=== PATIENT | female | born 1965 | race Caucasian/White ===

== ENCOUNTER 2017-05-13 21:10 | Observation (INO) ==
[2017-05-13] MEDS ORDERED: SODIUM CHLORIDE 0.9% 1,000 ML IV STA (23:12)
[2017-05-13] MEDS ORDERED: ONDANSETRON 4 MG/2 ML VIAL IV STA (23:12)
[2017-05-13] MEDS ORDERED: ALUM/MAG/SIMETH/LIDO VISC 1:1 30 ML BOTTLE PO STA (23:12)
[2017-05-13] MEDS ORDERED: PANTOPRAZOLE 40 MG VIAL IV STA (23:12)
[2017-05-13 23:23] LABS: Basophils # 0.1 10*3/uL (0.0-0.2); Basophils % 0.7 % (0.0-0.8); Eosinophils # 0.1 10*3/uL (0.0-0.87); Eosinophils % 1.5 % (0.00-10.9); Hematocrit 32.4 VOL% (35.7-47.0); Hemoglobin 10.8 GM/DL (12.0-16.0); Immature Granulocytes % 0.3 %; Immature Granulocytes Absolute 0.02 #; Lymphocytes # 3.6 10*3/uL (1.4-4.0); Lymphocytes % 48.9 % (21.3-54.2); Mean Corpuscular HGB Conc 33.3 GM/DL (32-36); Mean Corpuscular Hemoglobin 29 PG (27-34); Mean Corpuscular Volume 86.4 FL (87-102); Mean Platelet Volume 10.5 FL (9.6-12.0); Monocytes # 0.6 10*3/uL (0.11-0.8); Monocytes % 8.2 % (1.7-12.7); Neutrophils % 40.4 % (38.7-73.9); Platelet Count 286 T/CUMM (130-400); Red Blood Count 3.75 MC/CUMM (3.8-5.5); Red Cell Distribution Width 15.3 % (9.3-17.3); White Blood Count 7.4 T/CUMM (4-12)
--- NOTE | 2017-05-13 23:31 | Emergency Department Note ---
Robert Gabriel Gwan, am scribing for, and in the presence of, Antwan Joseph MD 23 :31. Jake Gabriel Charles R, MD, personally performed the services described in this documentation, ascribed by Ramya Jones in my presence, and it is both accurate and complete 331 . Arrival - Arrival Chief Complaint: Nausea/Vomiting/Diarrhea Stated Complaint: stomach pain,throwing up blood ED Nursing Triage Note: C/O Nausea/vomiting/diarrhea. Onset on and off for about a month. Pt states she has also had some bleeding from vagina and she is post hysterectomy. Denies seeking medical attention until tonight due to "I am trying to get on my disability" Denies fever. Mode of Arrival: Ambulatory Limitations: No Limitations Source: Patient, Old Records Reviewed, RN Notes Reviewed Time Seen by Provider: 05/13/17 22:34 - History of Present Illness HPI Narrative: Patient is a 52 y/o female who presents to the ED with a c/o N/V/D with an intermittent onset of 1 month ago. Patient also complains of vaginal bleeding s/ p hysterectomy. Patient denies having a fever. Patient describes her discomfort as cramping/burning sensation and that he pain is worsened after eating. Her pain is located in the center of her abd and radiates up to her throat. Patient confirmed that she has dark red hematuria and that she has a SHx of smoking cigarettes daily. She denies having a PCP or any ETOH use. Patient displayed signs of discomfort with direct palpation to abd area during exam. No other problems/complaints reported in ED. Onset (ago): month(s) Consistency: intermittent Severity: moderate Date of Last Menstrual Period: Hysterectomy 1996 Allergies/Adverse Reactions: Allergies Allergy/AdvReac Type Severity Reaction Status Date / Time ciprofloxacin [From Cipro] Allergy Severe RASH Verified 12/07/14 11:10 guaifenesin [From Robitussin] Allergy Severe ITCHING Verified 12/07/14 11:12 Penicillins Allergy Severe RASH Verified 12/07/14 11:13 Home Medications: Home Medications Medication Instructions Recorded Confirmed Type No Known Home Medications [No 05/13/17 05/13/17 History Known Home Medications] Review of System - Review of System 12 point system: reviewed and no additional remarkable complaints except as stated - Review of System Constitutional: Present: as per HPI. Absent: fever Gastrointestinal: Present: as per HPI, nausea, vomiting, diarrhea Genitourinary female: Present: as per HPI, hematuria Medical,Surgical,& Family Hx - Medical History Neurology: History of: Cerebrovascular Accident Rheumatology: History of;: Rheumatoid Arthritis - Social History Smoking Status: Current every day smoker Frequency of Alcohol Use: None Type of Drug Use: None Exam Vital Signs: Vital Signs Temperature 98.4 F 05/13/17 22:02 Pulse Rate 55 L 05/14/17 01:38 Respiratory Rate 22 05/14/17 01:38 Blood Pressure 81/53 05/14/17 01:38 O2 Sat by Pulse Oximetry 100 05/14/17 01:38 - General General appearance: alert, in no apparent distress, other (Patient has "smoker face"; appearance of dehydration ) - Head Head exam: Present: atraumatic, normocephalic - Eye Eye exam: Present: PERRL, EOMI, other (sunken orbits ) - ENT ENT exam: Present: normal oropharynx, mucous membranes dry - Neck Neck exam: Present: full ROM, trachea midline. Absent: tenderness - Chest Chest inspection: Present: symmetric chest wall rise. Absent: tenderness - Respiratory Respiratory exam: Present: rales (bilaterally), rhonchi, wheezes (faint expiratory wheezes ) - Cardiovascular Cardiovascular exam: Present: regular rate, normal rhythm, normal heart sounds. Absent: murmur - Abdominal Exam Abdominal exam: Present: tenderness (RUQ epigastric tenderness) - Rectal Exam Rectal exam: Present: heme (-) stool - Extremities Exam Extremities exam: Present: full ROM. Absent: tenderness - Back Exam Back exam: Present: full ROM. Absent: tenderness - Neurological Exam Neurological exam: Present: alert, oriented X3, CN II-XII intact. Absent: motor sensory deficit - Psychiatric Psychiatric exam: Present: normal affect, normal mood - Skin Skin exam: Present: other (Patient has "smoker face"; appearance of dehydration ; sunken orbits ) Course - Consultations Consultation #1: Hospitalist will admit patient Time: 01:39 Results - Labs CBC & BMP: 05/13/17 23:00 05/13/17 23:00 Lab Results: I have reviewed the patients labs Labs: Laboratory Tests 05/13/17 05/13/17 05/13/17 23:00 23:00 23:00 WBC 7.4 RBC 3.75 L Hgb 10.8 L Hct 32.4 L MCV 86.4 L Plt Count 286 Lactic Acid 1.2 Urine pH 6.0 Ur Specific [place] 1.006 Urine Urobilinogen < 2.0 H Urine Leukocytes Large H Urine RBC 2 Urine WBC 10 Ur Squamous Epith Cells Occasional Ur Renal Epithelial Cell Occasional Urine Bacteria Moderate Urine Mucus Occasional Laboratory Tests 05/13/17 23:00 Sodium 139 Potassium 3.5 Chloride 105 Carbon Dioxide 30 BUN 7 Creatinine 0.60 Alkaline Phosphatase 132 H Albumin 2.9 L Globulin 4.8 H Albumin/Globulin Ratio 0.6 L Serum Alcohol < 15 L Laboratory Tests 05/13/17 23:00 Urine Opiates Screen Negative Ur Barbiturates Screen Negative Ur Phencyclidine Scrn Negative U Amphetamine/Methamph Negative U Benzodiazepines Scrn Negative U Cocaine Metab Screen Negative U Cannabinoids Screen Negative Disposition Clinical Impression: Gastroenteritis, Biliary colic symptom, UTI (urinary tract infection), Chronic abdominal pain, Hypotension Case discussed with: patient Disposition: Still a Patient Condition: Stable Time of Disposition: 01:39
[2017-05-13] MEDS ORDERED: ONDANSETRON 4 MG/2 ML VIAL ONE (23:39)
[2017-05-13] MEDS ORDERED: PANTOPRAZOLE 40 MG VIAL IV ONE (23:39)
[2017-05-13] MEDS ORDERED: ALUM/MAG/SIMETH/LIDO VISC 1:1 30 ML BOTTLE PO ONE (23:39)
[2017-05-13 23:44] LABS: Lactic Acid 1.2 MMOL/L (0.4-2.0)
[2017-05-13 23:47] LABS: Apearance,Urine CLEAR (Clear); Bacteria,Urine Moderate /HPF (Few); Bilirubin,Urine Negative (Negative); Blood, Urine Negative (Negative); Glucose,Urine (UA) Negative (Negative); Ketones,Urine Negative (Negative); Mucus,Urine Occasional /LPF (Occasional); Nitrite,Urine Negative (Negative); Protein,Urine Negative; RBC,Urine 2 /HPF (0-4); Renal Epithelial Cells,Urine Occasional /HPF (<1); Squamous Epithelial Cell,Urine Occasional /HPF (0-10); Urine Color Yellow (Yellow); Urine Specific Gravity 1.006 (1.001-1.035); Urine Urobilinogen < 2.0 EU/DL (0.2-1.0); WBC,Urine 10 /HPF (0-6)
[2017-05-13 23:59] LABS: Alanine Aminotransferase 13 U/L (13-56); Albumin 2.9 G/DL (3.4-5.0); Alkaline Phosphatase 132 U/L (45-117); Amylase 35 U/L (25-115); Aspartate Amino Transferase 16 U/L (0-37); Bilirubin,Total < 0.39 MG/DL (0.2-1.0); Blood Urea Nitrogen 7 MG/DL (7-18); Calcium 9.4 MG/DL (8.5-10.1); Glucose 104 MG/DL (74-106); Magnesium 2.1 MG/DL (1.8-2.4); Osmolality,Calculated 274.5 MOS/KG (273-304); Potassium 3.5 MMOL/L (3.5-5.1); Sodium 139 MMOL/L (136-145); Total Protein 7.7 G/DL (6.4-8.3); Troponin I Only < 0.015 NG/ML (0.00-0.045)
[2017-05-14 00:09] LABS: Barbiturates Screen,Urine Negative (Negative); Benzodiazepines Screen,Urine Negative (Negative); Cannabinoid Screen,Urine Negative (Negative); Opiate Screen,Urine Negative (Negative); Phencyclidine Screen,Urine Negative (Negative)
[2017-05-14] MEDS ORDERED: cefTRIAXone 1,000 MG in SODIUM CHLORIDE 0.9% 100 ML IV STA (01:40)
[2017-05-14] MEDS ORDERED: SODIUM CHLORIDE 0.9% 100 ML IV ONE (01:43)
[2017-05-14] MEDS ORDERED: cefTRIAXone 1,000 MG VIAL ONE (01:43)
[2017-05-14] MEDS ORDERED: ACETAMINOPHEN 325 MG TABLET PO PRN (02:45)
[2017-05-14] MEDS ORDERED: ONDANSETRON 4 MG/2 ML VIAL IV PRN ×2 (02:45→21:12)
[2017-05-14] MEDS ORDERED: ALUMINUM/MAGNES/SIMETH MAX STR 30 ML UDCUP PO PRN (02:55)
--- NOTE | 2017-05-14 03:13 | Hospitalist History & Physical ---
<Tila Bates - Last Filed: 05/14/17 02:56> Assessment and Plan - Time spent with patient Time spent with patient: Greater than 30 minutes (1) Epigastric abdominal pain Status: Acute Assessment and plan: Admit to hospitalist services. Consult GI. Concern for PUD. Abdominal XR, Gallbladder US performed in ED. Reports pending. Treated with Protonix, GI cocktail, and zofran in ED. Continue daily Protonix. Mylanta and Zofran PRN. Clear liquid diet for now. Current Visit: Yes (2) Hypotension Status: Acute Assessment and plan: BP has been intermittently normal and low in the ED with lowest being 75/43 ( supine) and highest being 104/59 (supine). NS bolus of 1000 ml given in ED. Continue hydration with NS at 125 ml/hr. Continue to monitor. Current Visit: Yes (3) UTI (urinary tract infection) Status: Acute Assessment and plan: No elevation of WBC. Afebrile. Rocephin 1 gram IV given in ED. Continue Rocephin 1 gram IV Q24 hours. Hydrate with NS at 125 ml/hr. Recheck CBC in am. Current Visit: Yes (4) DVT prophylaxis Status: Acute Assessment and plan: Lovenox 40 mg SQ daily Current Visit: Yes History of Present Illness Chief complaint: Abdominal pain, vomiting History of present illness: Ms. Dhaliwal is a 52 year old female with a past medical history of RA and CVA x2 who presented to the emergency department of [facility] with complaints of epigastric pain with vomiting x 1 day. Ms. Dhaliwal reports that she has had some measure of epigastric pain "for a while," but that it has gotten worse over the last day and she has had 3-4 episodes of associated vomiting today. She reports decreased intake secondary to the pain it causes and a subjective complaint of weight loss. She denies fever and diarrhea. She additionally reports mild suprapubic pain with urination. In the ED, her work up was mostly unremarkable except for evidence of a UTI. Additionally, she developed a measure of hypotension while in the ED. She denies any knowledge of chronic hypotension. She takes no home medications. She was treated with IV Rocephin, GI cocktail, zofran, and protonix. Currently, she still complains of epigastric pain, but is in no acute distress. Hospitalist services were consulted, and the patient will be admitted to observation for further evaluation and treatment. Home Medications Medication Instructions Recorded Confirmed Type No Known Home Medications [No 05/13/17 05/13/17 History Known Home Medications] Allergies Allergy/AdvReac Type Severity Reaction Status Date / Time ciprofloxacin [From Cipro] Allergy Severe RASH Verified 12/07/14 11:10 guaifenesin [From Robitussin] Allergy Severe ITCHING Verified 12/07/14 11:12 Penicillins Allergy Severe RASH Verified 12/07/14 11:13 Medical,Surgical,& Family Hx - Medical History Neurology: History of: Cerebrovascular Accident (x 2.) Rheumatology: History of;: Rheumatoid Arthritis - Surgical History Abdominal Surgeries: Surgical HX of: Appendectomy Reproductive Surgeries: Surgical HX of;: Section, Hysterectomy - Family History Family History: Reports;: Family Hypertension - Social History Smoking Status: Current every day smoker (at least 1 1/2 ppd.) Have you smoked in the last 12 months: Yes Time spent discussing smoking cessation with patient: 3 to 10 minutes (3 mintues were spent discussing smoking cessation with the patient.) Frequency of Alcohol Use: None Type of Drug Use: None Marital Status: Legally Lives With:: Sibling Functional capacity: uses cane/walker 12 point system: reviewed and no additional remarkable complaints except as stated - Constitutional Constitutional: Present: anorexia. Absent: fever(s), lethargy, malaise, weakness - EENT Eyes: Absent: blurry vision, diplopia, loss of vision Ears: Absent: decreased hearing, ear discharge, ear pain Nose, mouth and throat: Absent: epistaxis, headache(s), nasal congestion, sore throat - Cardiovascular Cardiovascular: Absent: chest pain at rest, chest pain with activity, diaphoresis, dyspnea, edema, lightheadedness, orthopnea, palpitations - Respiratory Respiratory: Absent: cough, dyspnea, wheezing - Gastrointestinal Gastrointestinal: Present: abdominal pain, nausea, vomiting. Absent: constipation, diarrhea - Genitourinary Genitourinary: Present: dysuria (suprapubic pain with urination. ) - Musculoskeletal Musculoskeletal: Present: arthralgias, back pain, joint swelling. Absent: muscle weakness, myalgias - Neurological Neurological: Absent: confusion, dizziness, numbness, paresthesias, syncope - Psychiatric Psychiatric: Absent: anxiety, depression - Endocrine Endocrine: Absent: cold intolerance, polydipsia, polyphagia, polyuria - Hematologic/Lymphatic Hematologic/Lymphatic: Absent: easy bleeding, easy bruising Exam - Constitutional Vitals: Period Temp Pulse Resp BP Sys/Richardson Pulse Ox Last 24 Hr 98.4 F-98.4 F 50-69 16-28 75-104/43-73 99-100 Exam: Constitutional System: Afebrile. Awake, alert and oriented. No distress. No tremulousness. Head: Normocephalic, atraumatic. Ears, Nose and Throat System: No pain or tenderness. No epistaxis or discharge Eyes System: Pupils equal, round, and reactive. Extraocular muscles intact. Neck: Supple, without adenopathy, No jugular venous distention. No thyromegaly, neck mass, or prior surgery apparent. Respiratory System: Chest clear to auscultation. Cardiovascular System: Heart with regular rate and rhythm. No murmur. GI System: Abdomen soft, Epigastric tenderness noted. Hyperactive active bowel sounds present. Musculoskeletal System: Limbs with no pedal edema. Full distal pulses. Normal capillary refill. Neurological System: No discernable sensory deficit. No aphasia Psychiatric System: Conversation is rational Results - Labs CBC & BMP: 05/13/17 23:00 05/13/17 23:00 Lab Results: I have reviewed the past 24 hour labs - Diagnostic Findings Procedure: Abdominal x-ray: pending, Chest x-ray: pending, Ultrasound: pending <Sajan Patel - Last Filed: 05/14/17 04:09> Assessment and Plan (1) Epigastric abdominal pain Status: Acute Assessment and plan: I saw the patient in conjunction with nurse practitioner Tila Whyte. I agree with the above. She presented with abdominal pain and hypotension. Apparently hypotension is frequent with her but she complained of recent vomiting and I agree with moderate rehydration. GI has been consulted for her epigastric pain. Exam at this point is fairly unremarkable otherwise. Note she has elevated alk phos and low albumin with elevated globulin. This raises suspicion for possible chronic hepatitis for which we will check for as well as HIV. Current Visit: Yes History of Present Illness History of present illness: Ms. Dhaliwal is a 52 year old female Exam - Constitutional Vitals: Period Temp Pulse Resp BP Sys/Richardson Pulse Ox Last 24 Hr 98.4 F-98.4 F 50-69 16-28 75-104/43-73 99-100 Results - Labs CBC & BMP: 05/13/17 23:00 05/13/17 23:00
[2017-05-14] MEDS: SODIUM CHLORIDE 0.9% 1,000 ML IV SCH ×3 (03:59→22:12)
[2017-05-14 05:32] LABS: Basophils % 0.6 % (0.0-0.8); Eosinophils # 0.1 10*3/uL (0.0-0.87); Eosinophils % 1.5 % (0.00-10.9); Hematocrit 29.3 VOL% (35.7-47.0); Hemoglobin 9.6 GM/DL (12.0-16.0); Immature Granulocytes % 0.1 %; Immature Granulocytes Absolute 0.01 #; Lymphocytes # 3.7 10*3/uL (1.4-4.0); Lymphocytes % 53.1 % (21.3-54.2); Mean Corpuscular HGB Conc 32.8 GM/DL (32-36); Mean Corpuscular Hemoglobin 29 PG (27-34); Mean Corpuscular Volume 87.2 FL (87-102); Monocytes # 0.6 10*3/uL (0.11-0.8); Monocytes % 9.2 % (1.7-12.7); Neutrophils # 2.4 10*3/uL (1.4-7.4); Neutrophils % 35.5 % (38.7-73.9); Platelet Count 250 T/CUMM (130-400); Red Blood Count 3.36 MC/CUMM (3.8-5.5); Red Cell Distribution Width 15.5 % (9.3-17.3); White Blood Count 6.9 T/CUMM (4-12)
[2017-05-14 06:00] LABS: Calcium 8.9 MG/DL (8.5-10.1)
[2017-05-14 06:13] LABS: Eosinophils 2 % (0-10); Hypochromasia 2+; Lymphocytes 48 % (20-55); Platelet Estimate Normal; Segmented Neutrophils 43 % (50-85); Total Cells Counted 100
--- NOTE | 2017-05-14 06:14 | Ultrasound Report ---
Exam: US gallbladder Date:05/13/2017 11:12 PM Indication: Right upper quadrant pain and tenderness Comparison: None Findings: The study was initially reviewed by [facility]. Liver: 14.8 cm. Hepatic and portal veins are patent. No focal mass Gallbladder: Gallbladder is contracted with wall measuring 4.2 mm. No obvious stones present. CBD: 3.3 mm Pancreas: Normal size shape and configuration Kidneys Right kidney: 9.5 x 3.6 x 4 cm. No hydronephrosis perinephric fluid collections or focal mass. Normal color flow Ascites: None Impression: 1. Contracted gallbladder no obvious abnormalities otherwise noted. If further evaluation is warranted hepatobiliary imaging may be beneficial with nuclear medicine Ultrasound images were stored and captured PROCEDURE INTERPRETED AT [facility] DEPARTMENT OF RADIOLOGY Final Report Signed by: Dr. Donovan Molina
--- NOTE | 2017-05-14 07:01 | XRay Report ---
Exam: XR abdomen 2V Date: 05/13/2017 11:12 PM Comparison: None Indication: Abdominal pain Findings: Lung bases are unremarkable. The liver is unremarkable Renal contours/spleen are obscured The bony structures are demonstrated with mild scoliotic curve with scoliotic curve present which is most likely positional No obvious pneumoperitoneum Nonspecific GI pattern. Moderate stool in the rectal ampulla Phleboliths present. Impression: 1. Nonspecific GI pattern with mild constipation stool in the rectal ampulla PROCEDURE INTERPRETED AT [facility] DEPARTMENT OF RADIOLOGY Final Report Signed by: Dr. Donovan Molina
--- NOTE | 2017-05-14 07:02 | XRay Report ---
Exam: XR chest 1V portable Date: 05/13/2017 11:12 PM Indication: Abdominal pain Comparison: 07/05/2016 Technical: AP Findings: Minimal scarring in the perihilar region. External cardiac leads are present. The heart is normal in size. A few small calcified nodes present in the right hilar region. No obvious infiltrate or effusion or pneumothorax. Impression: 1. No acute cardiopulmonary pathology with mild scarring in the perihilar regions PROCEDURE INTERPRETED AT [facility] DEPARTMENT OF RADIOLOGY Final Report Signed by: Dr. Donovan Molina
--- NOTE | 2017-05-14 07:11 | Gastrointestinal Consult Note ---
Assessment and Plan (1) Epigastric abdominal pain Status: Acute Assessment and plan: This patient has fairly severe epigastric tenderness--I do not believe that this is biliary colic, this may simply be a gastroenteritis that will improve over time. It is curious that she is having hypotension but this may be related to the multiple episodes of vomiting, or mild infection. Her blood pressure may be similar to "where she lives", we simply do not have enough history on this lady to tell. She feels somewhat better on the Protonix. I would suggest watching her with a CBC every day to monitor her white count and see if her hematocrit continues to drop. She has not been colonoscopy and she follows up with Dr. Cuenca she can likely follow up with him if she needs upper endoscopy or we can scope her this admission if her hematocrit drops significantly or if she vomits blood or has melena. These have not occurred yet , and until they do will go ahead and treat her like this is a gastroenteritis versus food poisoning episode. I do not feel like she has enough pain in her right upper quadrant toward HIDA scan with CCK infusion but that could be considered if her pain becomes more colicky. Her LFTs are completely normal as are amylase and lipase. I am not sure why we are checking HIV and hepatitis screening in this patient as her liver function tests are normal. Current Visit: Yes (2) Hypotension Status: Acute Assessment and plan: Continue aggressive fluid hydration and would consider starting the patient on clear liquids to see how she tolerates this food intake. Current Visit: Yes History of Present Illness Chief complaint: 10 out of 10 epigastric pain, nausea/vomiting 4 times History of present illness: Ms. Dhaliwal is a 52 year old female who has fairly severe rheumatoid arthritis and possible urinary tract infection, but without significant elevation white blood cell count she is mildly anemic with hematocrit of 32.4, now down to 29.3 % with hydration. This patient follows up with Dr. Cuenca for her yearly colonoscopy for prior history of colon polyps. Although she has pain that was 10 out of 10 yesterday this is improved today and is now down to about a 7 out of 10 most uncomfortable with deep palpation she feels a lot less nauseous. She had 4 episodes of vomiting yesterday along with this pain. Ultrasound was done in the emergency room which was notable for a contracted gallbladder. She does not have a great deal of pain under the right upper quadrant, patient did have a low blood pressure in the emergency room at 75/43. This is, mildly since her hospitalization hydration with blood pressure of 80/55 but pulse rates that are run in the 50s-60s. Is unclear whether this is her baseline. She does not feel dizzy at this time but is lying supine in bed. This patient' s had a history of CVA 2 as well as severe RA involving her hands. She does not recall seeing black emesis but states that she does not really look at her vomit (?). She does not state that she is chronically hypotensive. She has some mild suprapubic pain and pain on urination as well. Urinalysis shows a large amount of leukocytes but only 10 white blood cells per high-power field, culture is being done now, urine toxicology is negative across the board. The patient states that she does not take much medication aside from the 2 ibuprofen per day for her underlying rheumatoid arthritis. She has been taking these medications for years. I am not sure why her colonoscopy is being done yearly by Dr. Cuenca,. Her regular compliance vice president. She denies any recent travel, she has not eaten any raw oysters, spoiled food, or other suspect foods that she can remember. She has not had any diarrhea or constipation issues. She has not had any recent sick contacts Home Medications Medication Instructions Recorded Confirmed Type No Known Home Medications [No 05/13/17 05/13/17 History Known Home Medications] Allergies Allergy/AdvReac Type Severity Reaction Status Date / Time ciprofloxacin [From Cipro] Allergy Severe RASH Verified 12/07/14 11:10 guaifenesin [From Robitussin] Allergy Severe ITCHING Verified 12/07/14 11:12 Penicillins Allergy Severe RASH Verified 12/07/14 11:13 Medical,Surgical,& Family Hx - Medical History Neurology: History of: Cerebrovascular Accident (x 2.) HEENT: History of: Dental Problems (Poor dentation) Rheumatology: History of;: Rheumatoid Arthritis Gastrointestinal: History of: GERD, Polyps - Surgical History Abdominal Surgeries: Surgical HX of: Appendectomy Reproductive Surgeries: Surgical HX of;: Section, Gynecologic Surgery, Hysterectomy - Family History Family History: Reports;: Family Hypertension - Social History Smoking Status: Current every day smoker Frequency of Alcohol Use: None Type of Drug Use: None Review of systems: Constitutional: Denies fever, chills, but positive for nausea, and vomiting Eyes: Denies dry eyes, and scleral icterus HENT: Occasionally she has some headaches Cardiovascular: Denies acute chest pain and claudication Respiratory: Denies shortness of breath, wheezing, and difficulty breathing, denies cough Gastrointestinal: As noted in the HPI Genitourinary: Denies dysuria and hematuria Neurologic: Denies vision loss, and loss of sensation Musculoskeletal: The patient has severe joint swelling, joint stiffness, and muscular weakness due to her rheumatoid arthritis Psychiatric: Denies depression and leslie symptoms Heme-Lymph: Admits easy bruising, but denies lymph node enlargement or tenderness, night sweats, excessive bleeding Allergies-immunologic: Denies pruritus and rhinorrhea Exam - Constitutional Vitals: Period Temp Pulse Resp BP Sys/Richardson Pulse Ox Last 24 Hr 98.0 F-98.4 F 50-69 14-28 75-105/43-73 99-100 General appearance: mild distress - Eye Eye exam: Present: EOMI Pupils: Present: CHRISTIAN - Respiratory Respiratory exam: Present: clear to auscultation bilaterally - Cardiovascular Cardiovascular exam: Present: regular rate and rhythm - GI/Abdominal GI/Abdominal exam: Present: normal bowel sounds, tenderness (Moderately severe epigastric pain on deep palpation), soft, other (Rectal examination shows guaiac negative stool now both in the emergency room and a more my physical examination, small internal hemorrhoids are seen.). Absent: distended, guarding , rebound - Extremities Exam Extremities exam: Present: other (Rheumatoid changes with ulnar deviation of her fingers bilaterally and swelling of the MCP joints in bilateral hands) - Neurological Exam Neurological exam: Present: alert, oriented X3, CN II-XII intact - Psychiatric Psychiatric exam: Present: normal affect, normal mood Results - Labs CBC & BMP: 05/14/17 04:34 05/14/17 04:34
[2017-05-14 07:20] LABS: HIV Antigen/Antibody Result Nonreactive (Nonreactive); Hepatitis A Ab IgM Quant < 0.02 Index; Hepatitis A Ab IgM Result Negative (Negative); Hepatitis B Core IgM Quant 0.18 Index; Hepatitis B Core IgM Result Negative (Negative); Hepatitis B Surface Ag Quant 0.45 Index; Hepatitis B Surface Ag Result Negative (Negative); Hepatitis C Virus Ab Quant 0.06 Index; Hepatitis C Virus Ab Result Negative (Negative)
[2017-05-14] MEDS ORDERED: PANTOPRAZOLE 40 MG TABLET PO SCH (09:00)
[2017-05-14] MEDS: ENOXAPARIN 40 MG/0.4 ML SYRINGE SUBCUT SCH (09:04)
[2017-05-14] MEDS: PANTOPRAZOLE 40 MG TABLET PO SCH ×2 (09:04→20:55)
[2017-05-14] MEDS ORDERED: SODIUM CHLORIDE 0.9% 1,000 ML IV ONE (12:21)
[2017-05-14] MEDS ORDERED: cefTRIAXone 1,000 MG in SODIUM CHLORIDE 0.9% 100 ML IV SCH (21:00)
[2017-05-15] MEDS: PANTOPRAZOLE 40 MG TABLET PO SCH (08:43)
[2017-05-15] MEDS: ENOXAPARIN 40 MG/0.4 ML SYRINGE SUBCUT SCH (08:43)
--- NOTE | 2017-05-15 10:27 | Discharge Summary ---
Hospital Course - Hospital Course Hospital Course: Ms. Dhaliwal is a 52-year-old white female who presented to the emergency department with epigastric abdominal pain, nausea and vomiting and evidence of a urinary tract infection. She was also hypotensive and required IV fluid bolus. She never had an elevated white blood cell count and her lactic acid was normal. She was started on Rocephin for treatment of the urinary tract infection. Her abdominal symptoms resolved. Her H&H remained stable. Her blood pressure has improved. Her urine culture shows greater than 100,000 colonies of gram-negative rods. She is allergic to Cipro and penicillins and will be discharged on Bactrim. She has instructions to follow-up with her primary care physician as an outpatient. Her hospital course was uncomplicated. She feels well this morning and tolerated a regular breakfast. She is a full code. Home medications were reviewed and reconciled. The patient is a chronic tobacco user and was counseled for 4 minutes regarding smoking cessation. - Time spent with patient Time with patient DS: Greater than 30 minutes (Total discharge time for this patient, including [id number] time, clinical documentation, medication reconciliation, and discharge planning was 36 minutes.) Time spent discussing smoking cessation with patient: 3 to 10 minutes (4 minutes ) Diagnosis - Discharge Diagnosis (1) UTI (urinary tract infection) Status: Acute (2) Gastroenteritis Status: Resolved (3) Hypotension Status: Resolved (4) Epigastric abdominal pain Status: Resolved Discharge Plan - Discharge Data Disposition: Disch To Home/Self Care Condition at Discharge: Stable Discharge Diet: advance to your usual diet Activity: resume usual activities as tolerated Hygiene: no restrictions Weight Bearing at Discharge: full weight bearing Driving: no restrictions Contact your physician if you experience:: fever over 101, Nausea/Vomiting - Discharge Medications New Sulfameth/Trimeth 800-160 Tab [Bactrim DS Tab] 1 tablet PO BID #14 tablet - Follow Up or Referral - Forms/Instructions Additional Discharge Instructions: Follow-up with primary care physician in 1 week Exam - Constitutional Vitals: Period Temp Pulse Resp BP Sys/Richardson Pulse Ox Last 24 Hr 97.0 F-98.5 F 50-68 17-18 80-98/54-61 94-99 Discharge Results Procedures and tests throughout hospitalization: Pending Orders 05/13/17 Urine Culture Routine Labs on day of discharge: Preliminary micro results at discharge 05/13/17 Unknown Urine Culture - Preliminary Urine,Voided Gram Negative Rods DS: Provider Date of admission: 05/14/17 02:45 Primary care physician: . No PCP Attending physician on admission: Sajan Patel MD Consults: 05/14/17 03:17 Consult to Physician [CONS] Routine Comment: epigastric pain/vomiting Consulting Provider: Job Tao Consulting Provider Notified: Yes When should Consulting Provider be notified: Now Person Notified: Dr. Tao saw Date Notified: 05/14/17 Time Notified: 07:05 05/14/17 04:21 Consult to Dietitian [CONS] Routine Reason for Dietitian: Dietary Consult Consult to Pastoral Services [CONS] Routine Comment: Pastoral Screen: Request Aerodynamics Engineer Visit Pastoral Screen Source of Request: Patient Discharging clinician: Marizol Gilliam MD Expected date of discharge: 05/15/17
--- NOTE | 2017-05-15 11:41 | Gastrointestinal Progress Note ---
Assessment and Plan (1) Epigastric abdominal pain Status: Resolved Assessment and plan: This patient has fairly severe epigastric tenderness--I do not believe that this is biliary colic, this may simply be a gastroenteritis that will improve over time. It is curious that she is having hypotension but this may be related to the multiple episodes of vomiting, or mild infection. Her blood pressure may be similar to "where she lives", we simply do not have enough history on this lady to tell. She feels somewhat better on the Protonix. I would suggest watching her with a CBC every day to monitor her white count and see if her hematocrit continues to drop. She has not been colonoscopy and she follows up with Dr. Cuenca she can likely follow up with him if she needs upper endoscopy or we can scope her this admission if her hematocrit drops significantly or if she vomits blood or has melena. These have not occurred yet , and until they do will go ahead and treat her like this is a gastroenteritis versus food poisoning episode. I do not feel like she has enough pain in her right upper quadrant toward HIDA scan with CCK infusion but that could be considered if her pain becomes more colicky. Her LFTs are completely normal as are amylase and lipase. I am not sure why we are checking HIV and hepatitis screening in this patient as her liver function tests are normal. 05/15/17--The hypotension has improved with treatment of her urinary tract infection, the patient's hematocrit has not been rechecked but did not drop precipitously and the patient feels well. She is going to be discharged today. She can follow-up with Dr. Cuenca as needed in the future for all of her GI needs. No further recommendations from me at this time. Current Visit: Yes (2) Hypotension Status: Resolved Assessment and plan: Continue aggressive fluid hydration and would consider starting the patient on clear liquids to see how she tolerates this food intake. 05/15/17--The patient is tolerating a solid diet and is ready to go home at this time with antibiotics given for urinary tract infection. She has been following with Dr. Cuenca for her colon polyps for many years and will continue to follow with him at this point. Current Visit: Yes Gastroenterology - PN: Subj Interval history: Patient doing great this morning, about to leave to go home with her treatment for urinary tract infections as per Dr. Gilliam's note Exam (Progress Note) - Constitutional Vitals: Period Temp Pulse Resp BP Sys/Richardson Pulse Ox Last 24 Hr 97.0 F-98.5 F 52-68 17-18 80-98/54-61 94-99 General appearance: no acute distress - Head Head exam: Present: normocephalic, atraumatic - Eye Eye exam: Present: EOMI Pupils: Present: CHRISTIAN - Respiratory Respiratory exam: Present: clear to auscultation bilaterally. Absent: rhonchi, stridor, wheezes - Cardiovascular Cardiovascular exam: Present: regular rate and rhythm - GI/Abdominal GI/Abdominal exam: Present: normal bowel sounds, soft. Absent: distended, guarding, tenderness, rebound - Neurological Exam Neurological exam: Present: alert, oriented X3 - Psychiatric Psychiatric exam: Present: normal affect, normal mood - Skin Skin exam: Present: warm Results - Labs CBC & BMP: 05/14/17 04:34 05/14/17 04:34 Specialty Discharge - Follow Up or Referrals
[2017-05-15 12:04] VITALS: BP 111/64
== END 2017-05-15 12:25 | disposition home or self-care (01) ==
LOC: N.ED 21:10 → N.EDINP 21:10 → SUATTDRO 05-14 02:45 → N.3E 05-14 03:34
PROVIDERS: ADMIT Family Medicine; ATTEND Family Medicine